=== PATIENT | male | born 1985 | race Caucasian/White ===

== ENCOUNTER 2018-07-29 07:48 | Emergency (ER) | payer OTHER, SELFPAY ==
[2018-07-29 07:46] VITALS: BP 132/74; PULSE 88; RESP 18; TEMP 36.7; O2SAT 100; BMI 30.7
--- NOTE | 2018-07-29 07:53 | DI.RAD.S_ITS ---
PROCEDURE: XR ANKLE RT MIN 3V INDICATIONS: Achilles pain and injury TECHNIQUE: 3 views of the ankle were acquired. COMPARISON: None. FINDINGS: Bones: No fractures or dislocations. Ankle mortise is normally aligned. No suspicious bony lesions. Soft tissues: There is a small tibiotalar joint effusion. There is mild hazy opacification of the Kager fat pad/triangle, which can be seen with Achilles tendon injuries. IMPRESSION: No acute fracture or dislocation of the right ankle. There is a small right ankle joint effusion and mild hazy opacification of the posterior ankle fat, which can be seen with posterior ankle soft tissue injuries (including the Achilles tendon). Consider followup radiographs in 7-10 days if there is continued clinical concern. Dictated by: Faizan Benson M.D. on 07/29/2018 at 8:23 Approved by: Faizan Benson M.D. on 07/29/2018 at 9:13
[2018-07-29] MEDS: KETOROLAC 60 MG/2 ML VIAL IM (08:03)
--- NOTE | 2018-07-29 08:32 | PC.NURSE ---
ambulate with pair of crutches, steady.
--- NOTE | 2018-07-29 08:44 | ED_ITS ---
HPI - Extremity Injury (Lower) General Chief Complaint: Extremity Injury, Lower Stated Complaint: L heel pain post playing racketball Time Seen by Provider: 07/29/18 07:53 Source: patient and EMS Mode of arrival: EMS Limitations: no limitations History of Present Illness HPI Narrative: Presents with all right ankle pain. He was playing his [employer] ball of when he twisted and heard a snap in his ankle. He did not fall. He has extreme pain in his calf. No numbness or tingling. MD complaint: ankle injury Related Data Previous Rx's Medication Instructions Recorded hydrocodone-acetaminophen [[place]] 1 tab PO Q4-6H PRN #10 tab 07/29/18 Allergies Allergy/AdvReac Type Severity Reaction Status Date / Time No Known Drug Allergies Allergy Verified 07/29/18 07:52 Review of Systems Review of Systems GENERAL: Denies chills,fever HEENT: Denies throat pain RESPIRATORY: Denies dyspnea, cough, wheezing CARDIOVASCULAR: Denies chest pain, palpitations GASTROINTESTINAL: Denies nausea, vomiting MUSCULOSKELETAL: See HPI SKIN: No rash, no laceration, no pruritus NEUROLOGIC: Denies weakness, dizziness, headache, numbness 8 point review of systems is negative except for those stated above and HPI Exam Initial Vital Signs Initial Vital Signs: Vital Signs Temperature 98.1 F 07/29/18 07:46 Pulse Rate 88 07/29/18 07:46 Respiratory Rate 18 07/29/18 07:46 Blood Pressure 132/74 07/29/18 07:46 Pulse Oximetry 100 07/29/18 07:46 GENERAL: Well-appearing, well-nourished and in no acute distress. CARDIOVASCULAR: peripheral pulses in tact, cap refill <2 sec RESPIRATORY: No respiratory distress, speaks in full sentences without difficulty EXTREMITIES: Normal range of motion, no clubbing or edema. Neurovascularly intact Right lower extremity: No bony deformity and no swelling improved extremely tender posteriorly. Foot does not move with Bear test NEUROLOGICAL: Cranial nerves II through XII grossly intact. Normal gait and speech. SKIN: Warm, dry, no petechiae, no rashes or lesions. Course Orders Ordered: ED Orders 07/29/18 07:53 XR ankle RT min 3V Stat Discontinued Medications Ketorolac Tromethamine (Toradol) 60 mg IM NOW ONE Stop: 07/29/18 07:56 Last Admin: 07/29/18 08:03 Dose: 60 mg Vital Signs - 8 hr 07/29/18 07:46 07/29/18 09:32 Temperature 98.1 F Pulse Rate 88 90 Respiratory Rate 18 17 Blood Pressure 132/74 128/81 Pulse Oximetry 100 96 MDM - Extremity Injury (Lower) Imaging Data Right ankle XR: Attestation: I personally reviewed and interpreted this imaging study as follows: My impression: No fracture Radiologist's impression: PROCEDURE: XR ANKLE RT MIN 3V INDICATIONS: Achilles pain and injury TECHNIQUE: 3 views of the ankle were acquired. COMPARISON: None. FINDINGS: Bones: No fractures or dislocations. Ankle mortise is normally aligned. No suspicious bony lesions. Soft tissues: There is a small tibiotalar joint effusion. There is mild hazy opacification of the Kager fat pad/triangle, which can be seen with Achilles tendon injuries. IMPRESSION: No acute fracture or dislocation of the right ankle. There is a small right ankle joint effusion and mild hazy opacification of the posterior ankle fat, which can be seen with posterior ankle soft tissue injuries (including the Achilles tendon). Consider followup radiographs in 7-10 days if there is continued clinical concern. Dictated by: Faizan Benson M.D. on 07/29/2018 at 8:23 MDM Narrative Medical decision making narrative: Patient is placed in walking boot, and given crutches. He is very tender On his Achilles. I suspect rupture of the Achilles. Recommended orthopedic follow-up. Discharge Plan Departure Patient Disposition: Home Clinical Impression: Achilles tendon rupture Discharge Date/Time: 07/29/18 09:32 Interventions: ED Discharge Assessment Last Done: 07/29/18 09:32 Instructions: Achilles Tendon Rupture Activity Restrictions/Additional Instructions: *You have been diagnosed with Achilles tendon rupture *What to do: This will likely require surgery. Where walking boot to help prevent footdrop use crutches as needed *Continue to take medications as directed -Minburn 1 tab every 6 hr if needed for severe pain *Follow up with your primary care provider in 2-3 days, follow up with Orthopedics call today to schedule appointment *Return to ER if you should have numbness, tingling, pain or any new, worsening or concerning symptoms Prescriptions: New hydrocodone-acetaminophen [[place]] 5-325 mg tablet 1 tab PO Q4-6H PRN (Reason: pain) Qty: 10 RF: 0 Referrals: [facility] [Provider Group] [facility] [Outside]
[2018-07-29 09:32] VITALS: BP 128/81; PULSE 90; RESP 17; O2SAT 96
== END 2018-07-29 09:32 | disposition home or self-care (01) ==
PROVIDERS: Emergency Provider Emergency Medicine
DX: S86.011A Strain of right Achilles tendon, initial encounter (principal); Y93.69 Activity, other involving other sports and athletics played as a team or group
CPT/HCPCS: 73610; 96372; 99283; J1885

== ENCOUNTER 2020-08-31 17:31 | Emergency (ER) | payer OTHER, SELFPAY ==
[2020-08-31 17:36] VITALS: BP 150/80; PULSE 75; RESP 18; TEMP 37.1; O2SAT 98
--- NOTE | 2020-08-31 17:55 | DI.US.S_ITS ---
PROCEDURE: US SCROTUM INDICATIONS: Testicular pain, rule out portion TECHNIQUE: Real-time scanning was performed of the scrotum and testicles, with image documentation. Color and pulse Doppler interrogation was performed of both testicles. COMPARISON: None. FINDINGS: Normal size and appearance of both testicles. No testicular mass. Normal Doppler flow in both testicles with no evidence of torsion. The left epididymal tail demonstrates mildly increased vascularity the corresponding to the patient's area of tenderness No hydrocele or varicocele. IMPRESSION: No findings of testicular torsion. Suspected left epididymitis. Dictated by: Edliberto Euceda M.D. on 08/31/2020 at 19:00 Approved by: Edilberto Euceda M.D. on 08/31/2020 at 19:01
--- NOTE | 2020-08-31 20:38 | ED.MALEGU ---
HPI - Male Genitourinary General Chief complaint: Urogenital-Male Stated complaint: testicular pain x2 days Time Seen by Provider: 08/31/20 18:09 Source: patient Mode of arrival: Ambulatory Limitations: no limitations History of Present Illness HPI Narrative: 35-year-old male comes to the emergency department with complaint of left testicular pain that started the last 12 hours. Patient has had a couple episodes in the past that last for 6 hours at times but always resolve. Today he noticed swelling, pain and increasing discomfort in a tugging sensation in his groin. He denies any fevers, he denies any abdominal or flank pain. He denies any issues with urination, no dysuria, no penile discharge. He is not have any right testicular pain. Patient denies any other medical issues. He has had hernia repairs 2 on the right the right inguinal 1 on the left that was inguinal and a ventral hernia repair. He states he has also had a vasectomy. He is accompanied by his . Related Data Previous Rx's Medication Instructions Recorded hydrocodone-acetaminophen [[place]] 1 tab PO Q4-6H PRN #10 tab 07/29/18 doxycycline hyclate 100 mg PO BID #28 tab 08/31/20 Allergies Allergy/AdvReac Type Severity Reaction Status Date / Time No Known Drug Allergies Allergy Verified 07/29/18 07:52 Review of Systems Review of Systems ROS Unobtainable: All systems reviewed & are unremarkable except as noted in HPI and below Patient History Substance Use Type: does not use Exam Narrative Exam Narrative: GENERAL: Alert and oriented x three, well-nourished male in mild distress. HEENT: Head normocephalic, atraumatic, EOMI, pupils reactive, face symmetric, moist mucous membranes NECK: Supple, full range of motion CARDIOVASCULAR: Regular rate and rhythm without murmurs, rubs or gallops. RESPIRATORY: Breath sounds equal bilaterally, no wheezes rales or rhonchi. ABDOMEN: Soft, nontender. Normoactive bowel sounds all 4 quadrants. No guarding or rebound, rigidity, no mass : No CVA tenderness. Male: normal external examination, no penile discharge or lesions, left testicle is tender, right testicle is nontender, cremasteric reflex intact, no inguinal hernias noted. No rashes. Skin changes. Vesicles noted. EXTREMITIES: Normal range of motion, no clubbing or edema. Neurovascularly intact NEUROLOGICAL: Cranial nerves II through XII grossly intact. Moving all extremities SKIN: Warm, dry, no petechiae, no rashes or lesions. Initial Vital Signs Initial Vital Signs: Vital Signs Temperature 98.7 F 08/31/20 17:36 Pulse Rate 75 08/31/20 17:36 Respiratory Rate 18 08/31/20 17:36 Blood Pressure 150/80 H 08/31/20 17:36 Pulse Oximetry 98 08/31/20 17:36 Course Orders Ordered: ED Orders 08/31/20 19:04 Chlamydia Gonorrhea PCR -URINE Stat Urine Culture Stat Discontinued Medications Ceftriaxone Sodium (Ceftriaxone 1,000 Mg Vial) 500 mg IM NOW ONE Stop: 08/31/20 20:49 Last Admin: 08/31/20 21:06 Dose: 500 mg Documented by: LOBO Doxycycline Hyclate (Doxycycline Hyclate 100 Mg Tablet) 100 mg PO NOW ONE Stop: 08/31/20 20:49 Last Admin: 08/31/20 21:04 Dose: 100 mg Documented by: LOBO Ketorolac Tromethamine (Ketorolac 60 Mg/2 Ml Vial) 30 mg IM NOW ONE Stop: 08/31/20 20:49 Last Admin: 08/31/20 21:04 Dose: 30 mg Documented by: LOBO Lidocaine HCl (Lidocaine 1% 20 Ml) 2.1 ml INJ NOW ONE Stop: 08/31/20 20:49 Last Admin: 08/31/20 21:05 Dose: 2.1 ml Documented by: LOBO Vital Signs Vital signs: Vital Signs - 8 hr 08/31/20 21:03 Pulse Rate 56 L Respiratory Rate 14 Blood Pressure 132/70 Pulse Oximetry 96 MDM - Male Genitourinary Lab Data Attestation: I reviewed the patient's lab results. Labs: Lab Results 08/31/20 Range/Units 19:04 Ur Chlamydia DNA (PCR) Not detected N gonorrhoeae DNA (PCR) Not detected Urine Dip Bedside Urine Glucose Negative Bedside Urine Bilirubin - Negative Bedside Urine Ketone - Negative Urine Specific [place] 1.025 Bedside Urine Occult Blood - Negative Bedside Urine pH 6 Bedside Urine Protein - Negative Bedside Urine Urobilinogen - Negative Bedside Urine Nitrite - Negative Bedside Urine Leukocytes - Negative Esterase Imaging Data Testicular ultrasound: Radiologist's Impression: [address] [id number] ReportSigned Patient: Madhu Hansen R#: [id number]: 1985Acct:[id number]/Sex: 35 / MDate of Service: 08/31/20Loc: EDAccession Number: [id number] Procedure: US scrotum Ordering Provider: Rodolfo Jules D.O. PROCEDURE: US SCROTUM INDICATIONS: Testicular pain, rule out portion TECHNIQUE: Real-time scanning was performed of the scrotum and testicles, with image documentation. Color and pulse Doppler interrogation was performed of both testicles. COMPARISON: None. FINDINGS: Normal size and appearance of both testicles. No testicular mass. Normal Doppler flow in both testicles with no evidence of torsion. The left epididymal tail demonstrates mildly increased vascularity the corresponding to the patient's area of tenderness No hydrocele or varicocele. IMPRESSION: No findings of testicular torsion. Suspected left epididymitis. Dictated by: Edilberto Euceda M.D. on 08/31/2020 at 19:00 Approved by: Edilberto Euceda M.D. on 08/31/2020 at 19:01 [facility] Narrative Medical decision making narrative: 35-year-old male with left-sided testicular pain with ultrasound consistent with epididymitis. Negative. Urine GC is negative. Patient was treated with Rocephin and doxycycline. Return precautions were discussed. Patient is following up on Thursday with primary care for referral to Urology. Discharge Plan Departure Patient Disposition: Home Clinical Impression: Epididymitis Instructions: DI for Epididymitis Activity Restrictions/Additional Instructions: Follow up with your physician this week for recheck. You may take ibuprofen up to 800 mg every 8 hours as needed for pain. You may take Tylenol up to a 1000 mg every 8 hours as needed for pain. You may use ice to the affected area as needed. Your urine tests are still pending. If you are on the appropriate antibiotics you will not be contacted. But you can call to follow-up your culture and testing. Take antibiotics until completely gone. Return to the ER for fevers greater 100.4 F, rapidly worsening pain, swelling, inability urinate, new abdominal or flank, lightheadedness or passing out, persistent vomiting or other new or concerning symptoms. Prescriptions: New doxycycline hyclate 100 mg tablet 100 mg PO BID Qty: 28 RF: 0 No Action hydrocodone-acetaminophen [[place]] 5-325 mg tablet 1 tab PO Q4-6H PRN (Reason: pain) Qty: 10 RF: 0 Referrals: Tim Benavides MD [Physician] -
[2020-08-31 20:57] LABS: Urine N gonorrhoeae NOT DETECTED
[2020-08-31 21:03] VITALS: BP 132/70; PULSE 56; RESP 14; O2SAT 96
[2020-08-31] MEDS: KETOROLAC 60 MG/2 ML VIAL 30 MG IM (21:04)
[2020-08-31] MEDS: DOXYCYCLINE HYCLATE 100 MG TABLET PO (21:04)
[2020-08-31] MEDS: LIDOCAINE 1% 20 ML 2.1 ML INJ (21:05)
[2020-08-31] MEDS: cefTRIAXone 1,000 MG VIAL 500 MG IM (21:06)
[2020-08-31 21:13] LABS: Urine Chlamydia NOT DETECTED
== END 2020-08-31 21:20 | disposition home or self-care (01) ==
PROVIDERS: Emergency Provider Emergency Medicine
DX: N45.1 Epididymitis (principal)
CPT/HCPCS: 76870; 81003; 87086; 87491; 87591; 96372; 99283; J0696; J1885

== ENCOUNTER → 2021-08-23 13:49 | Outpatient (CLI) | payer OTHER, SELFPAY ==
[2021-08-23 14:39] LABS: COVID19 -Nasal RAPID Negative (Negative)
== END ==
PROVIDERS: Visit Provider Surgery
DX: Z01.812 Encounter for preprocedural laboratory examination (principal); Z20.822 Contact with and (suspected) exposure to COVID-19
CPT/HCPCS: 87635; C9803

== ENCOUNTER 2021-08-26 06:29 | Day surgery (SDC) | payer OTHER, SELFPAY ==
[2021-08-22 09:30] VITALS: BMI 31.4
[2021-08-26 06:45] VITALS: BP 137/90; PULSE 78; RESP 16; TEMP 36.8; O2SAT 100; BMI 31.1
--- NOTE | 2021-08-26 07:33 | PM.PREOP ---
Pre-operative Note COVID-19 Criteria for continued procedure: Continuing or worsening of significant or severe pain Interval Note History & Physical reviewed/Exam performed by Physician: Yes Changes to H&P: No
[2021-08-26] MEDS: CEFAZOLIN 2 GM/20 ML SYRINGE IV (08:01)
--- NOTE | 2021-08-26 08:06 | SUR.OPER ---
Prone on padded OR bed, head in foam head support, gel chest rolls, gel pad under knees, pillow under lower legs, toes free of pressure, arms secured on padded arm boards at <90 degrees abduction. Safety belt at thigh.
[2021-08-26] MEDS: BUPIVACAINE 0.25% (PF) VIAL 30 ML INJ (08:09)
--- NOTE | 2021-08-26 09:16 | PM.OP.1 ---
Operative Date/Time/Diagnoses Date of procedure: 08/26/21 Time of procedure: 09:16 Pre-op diagnosis: Recurrent right inguinal hernia Post-op diagnosis: same Procedure & Clinicians Procedure: Open repair of recurrent right inguinal hernia Same procedure as scheduled: Yes Indications: 36-year-old man previous laparoscopic right inguinal hernia repair subsequent open right inguinal hernia repair for recurrence and now with a 2nd recurrence. Surgeon: Micha Gilliland Click Yes if Unassisted: Yes Anesthesia Type: General Operative Notes Findings: Small indirect hernia and direct floor defect Specimen(s): none sent Estimated Blood Loss (mL): 20 Procedure in detail: Patient was brought to the operating room placed supine on the table. General anesthesia was induced he was intubated with an LMA. He was prepped and draped sterile fashion. Time-out performed. He received 2 g of Ancef prior to skin incision. The right previous inguinal incision was opened. The subcutaneous tissue was divided. The external oblique aponeurosis was exposed and then opened along the direction of its fibers. There was a large amount of scar tissue within the inguinal canal. The cord was then carefully freed from the canal and the previous mesh. The cord been previously fairly well skeletonized there was a laxity to the lateral aspect of the internal ring and a plug of mesh was placed into the ring and secured to the adjacent fascia to recreate the ring. The floor the canal had a direct defect. The floor was attenuated and scarred. The floor of the canal was then completely opened and the preperitoneal fat was observed. A 2nd plug of mesh was then placed into the floor and secured to the internal oblique aporneurosis and the shelving edge. A sheet of mesh was then secured over the floor for reinforcement, secured at the pubic tubercle along the inguinal ligament and the internal oblique aporneurosis with interrupted eithibond suture. The canal was then in a running fashion Vicryl suture. The subcutaneous tissue was reapproximated Vicryl skin closed with Monocryl followed by Dermabond. Complications: none Post-operative Condition: stable Disposition: same day surgery
[2021-08-26 09:17] VITALS: BP 108/62; PULSE 70; RESP 12; TEMP 36.6; O2SAT 88
[2021-08-26 09:24] VITALS: BP 126/77; PULSE 70; RESP 15; O2SAT 99
[2021-08-26 09:31] VITALS: BP 143/88; PULSE 81; RESP 15; O2SAT 99
[2021-08-26] MEDS: ACETAMINOPHEN 325 MG TABLET 650 MG PO (09:35)
[2021-08-26] MEDS: OXYCODONE IR 5 MG TABLET PO (09:35)
--- NOTE | 2021-08-26 09:37 | SUR.PHASEII ---
report given to Geovanna LYNN. Pt tolerating Ice chips, water, apple sauce with no c/o nausea noted. Groin site intact, no drainage noted.
[2021-08-26 09:40] VITALS: BP 144/76; PULSE 72; RESP 18; TEMP 36.9; O2SAT 99
== END 2021-08-26 09:50 | disposition home or self-care (01) ==
PROVIDERS: Referring Provider Surgery; Visit Provider Surgery
PROC: (CPT 49520; principal; 2021-08-26 07:45)
DX: K40.91 Unilateral inguinal hernia, without obstruction or gangrene, recurrent (principal)
CPT/HCPCS: 49520; 82962; J0690; J1100; J1885; J2405; J2704; J3010

== ENCOUNTER → 2024-06-13 18:26 | Outpatient (CLI) | payer OTHER, SELFPAY ==
--- NOTE | 2024-06-13 | DI.MRI.S_ITS ---
PROCEDURE: MR SHOULDER LT WO CON INDICATIONS: pain in elbow/shoulder TECHNIQUE: Noncontrast oblique coronal T2 fast spin echo with fat saturation, oblique sagittal T1 spin echo and T2 fast spin echo with fat saturation, axial T1 spin echo and T2 fast spin echo with fat saturation through the shoulder. COMPARISON: None. FINDINGS: Image quality: Excellent. Rotator cuff: Mild tendinosis of the supraspinatus, without tear. The infraspinatus is unremarkable. The teres minor is unremarkable. Mild tendinosis of the subscapularis, without tear. No muscle edema or fatty atrophy. Bones and bursae: Moderate degenerative changes of the acromioclavicular joint. Type 2 acromion. No os acromiale. Trace subacromial/subdeltoid bursitis. Mild subchondral cystic changes at the lesser tuberosity, reactive. No acute fracture. No focal chondral defect of the glenohumeral articulation. Capsule and soft tissues: The labrum is intact. The extra-articular, and the intra-articular biceps tendon are unremarkable. Small glenohumeral effusion. No intra-articular body. IMPRESSION: 1. Moderate degenerative changes of the acromioclavicular joint. 2. Mild tendinosis of the supraspinatus and subscapularis, without tear. Dictated by: Cally Quigley M.D. on 06/14/2024 at 9:58 Approved by: Cally Quigley M.D. on 06/14/2024 at 10:05
--- NOTE | 2024-06-13 | DI.MRI.S_ITS ---
PROCEDURE: MR ELBOW RT WO CON INDICATIONS: pain in right elbow/ left shoulder TECHNIQUE: Noncontrast coronal proton density fast spin echo and T2 fast spin echo with fat saturation, axial and sagittal T1 spin echo and T2 fast spin echo with fat saturation through the elbow. COMPARISON: None. FINDINGS: Image quality: Excellent. Lateral structures: The lateral ulnar collateral ligament and radial collateral ligament both appear intact. Mild tendinosis of the common extensor tendon origin, without tear. Medial structures: The ulnar collateral ligament appears intact. The overlying common flexor tendon appears normal. Edema of the ulnar nerve, raising concern for ulnar neuritis. Anterior structures: The biceps and brachialis tendons both appear intact as they insert onto the proximal radius and ulna, respectively. No bicipitoradial bursal fluid. The median and radial neurovascular bundles appear normal; no focal muscle atrophy to suggest nerve impingement. Posterior structures: The conjoint triceps tendon from the long and lateral heads appears intact. The medial head of the triceps tendon also appears normal, with direct muscle insertion onto the olecranon. No olecranon bursal fluid. Bone and cartilage: No bone marrow contusions or fractures. No osteochondral injuries. IMPRESSION: 1. Mild tendinosis of the common extensor tendon origin, without tear. 2. Findings concerning for ulnar neuritis. Dictated by: Cally Quigley M.D. on 06/14/2024 at 15:33 Approved by: Cally Quigley M.D. on 06/14/2024 at 15:40
== END ==
LOC: MRI 18:27
DX: M25.512 Pain in left shoulder (principal); M25.521 Pain in right elbow
CPT/HCPCS: 73221

== ENCOUNTER → 2024-07-29 08:31 | Outpatient (CLI) | payer OTHER, SELFPAY ==
--- NOTE | 2024-07-29 08:32 | DI.MRI.S_ITS ---
PROCEDURE: MR WRIST RT WO CON INDICATIONS: PERSISTENT RT WRIST PAIN/LT SHOULDER PAIN TECHNIQUE: Noncontrast coronal proton density fast spin echo and T2 fast spin echo with fat saturation; coronal 3-D gradient echo, axial T1 spin echo and T2 fast spin echo with fat saturation, sagittal T1 spin echo through the wrist. COMPARISON: None. FINDINGS: Image quality: Excellent. Bones: The bone marrow signal is normal. There is no evidence of fracture or carpal bone osteonecrosis. There is a type 1 lunate. Joints: There is no significant osteoarthritis. There is no significant fluid within the distal radioulnar joint, radiocarpal joint, or midcarpal space. Intrinsic Ligaments: The scapholunate and lunotriquetral intervals are normal. The intrinsic scapholunate and lunotriquetral ligaments are normal. Extrinsic Ligaments: The extrinsic ligaments are normal. Triangular Fibrocartilage Complex: The triangular fibrocartilage disc proper, distal dorsal and volar radioulnar ligaments, ulnar collateral ligament/meniscal homologue, ulnotriquetral, and ulnolunate ligaments are normal. Tendons: There is minimal intermediate signal within the extensor carpi ulnaris tendon at the fibro-osseous tunnel (03/20) of the distal ulna. The flexor and extensor tendons are otherwise normal. Nerves: The median and ulnar nerves appear normal in size and signal. Other: No other acute abnormality. IMPRESSION: Minimal extensor carpi ulnaris tendinosis. Otherwise, no acute MR abnormality of the right wrist. Dictated by: Nithin Dobson M.D. on 07/29/2024 at 15:26 Approved by: Nithin Dobson M.D. on 07/29/2024 at 15:33
--- NOTE | 2024-07-29 08:33 | DI.RAD.S_ITS ---
PROCEDURE: FL JOINT INJECTION LARGE LT INDICATIONS: PERSISTENT RT WRIST PAIN/LT SHOULDER PAIN COMPARISON: None. TECHNIQUE: The indications, alternatives, benefits, risks, and complications of the procedure were explained to the patient. Written informed consent was obtained and placed in the chart. The patient was placed in an appropriate position on the fluoroscopy table, and a site was chosen for percutaneous access under fluoroscopic guidance. The site was prepped and draped in a sterile fashion. Local anesthetic was administered using a 1% lidocaine solution. A hypodermic or spinal needle was then used to access the symptomatic joint. Intra-articular location of the needle tip was confirmed by injecting a small amount of contrast, followed by steroid administration. The needle was then withdrawn, and a bandage applied to the puncture site. FINDINGS: Joint injected: Left shoulder Medications injected: For mL of 40 mg/mL Kenalog and 0.5% Ropivacaine mixture. Patient's pain before injection: 3 out of 10. Patient's pain after injection: 3 out of 10. Complications: None. IMPRESSION: Successful fluoroscopically guided administration of steroid and anaesthetic solution into the left shoulder joint. Dictated by: West Brown M.D. on 07/29/2024 at 16:06 Approved by: West Brown M.D. on 07/29/2024 at 16:09
[2024-07-29] MEDS: LIDOCAINE 1% 20 ML INJ (12:57)
[2024-07-29] MEDS: TRIAMCINOLONE 40 MG/ML VIAL INTRA-ARTI (12:57)
[2024-07-29] MEDS: ROPIVACAINE 0.5% PF 5 MG/ML 20ML VIAL 20 ML INJ (12:57)
== END ==
DX: M25.531 Pain in right wrist (principal); M25.512 Pain in left shoulder; M67.833 Other specified disorders of tendon, right wrist
CPT/HCPCS: 20610; 73221; 77002; Q9967

== ENCOUNTER → 2024-08-22 15:39 | Outpatient (CLI) | payer OTHER, SELFPAY ==
--- NOTE | 2024-08-22 15:40 | DI.US.S_ITS ---
PROCEDURE: US ABDOMEN LIMITED INDICATIONS: POSSIBLE INGUINAL HERNIA TECHNIQUE: Real-time focused scanning was performed of the abdomen, with image documentation. COMPARISON: None. FINDINGS: There is fat within both inguinal canals. Quantity does not change with Valsalva maneuver and is non reducible with transducer compression. IMPRESSION: Probable non reducible bilateral fat containing inguinal hernias versus lipomatous hypertrophy of the spermatic cord. Consider CT or physical exam to assess for inguinal ring enlargement. Dictated by: Unique Peterson M.D. on 08/23/2024 at 11:06 Approved by: Unique Peterson M.D. on 08/23/2024 at 11:09
== END ==
DX: K40.90 Unilateral inguinal hernia, without obstruction or gangrene, not specified as recurrent (principal)
CPT/HCPCS: 76705

== ENCOUNTER 2025-05-24 06:02 | Day surgery (SDC) | payer OTHER, SELFPAY ==
[2025-05-05 12:53] VITALS: BMI 31.8
[2025-05-24 06:49] VITALS: BP 136/85; PULSE 73; RESP 16; TEMP 36.8; O2SAT 98
[2025-05-24] MEDS: LACTATED RINGERS 1,000 ML 42 ML IV (07:11)
[2025-05-24] MEDS: ACETAMINOPHEN IV 1,000 MG/100 ML VIAL 400 MG IV (07:12)
--- NOTE | 2025-05-24 07:34 | P.HP_ITS ---
History of Present Illness History of Present Illness Date Patient Seen: 05/24/25 Time Patient Seen: 07:34 Chief complaint: Bilateral Lap Inguinal Hernia Repair Robot Assist. Narrative: Madhu is a 40 year old man with a multiply recurrent right inguinal hernia and a de Carmelo left inguinal hernia. See the prior office note for details. [facility] Medical History (Updated 05/05/25 @ 12:45 by Mary Jo Tilley RN) MICHAEL (obstructive sleep apnea) HLD (hyperlipidemia) DVT (deep venous thrombosis) Chronic low back pain Sleep apnea Hernia Surgical History (Updated 05/05/25 @ 12:52 by Mary Jo Tilley RN) Hx of right inguinal hernia repair (08/26/21) Hx of hernia repair (02/2015) Hx of LASIK (09/2017) Hx of vasectomy (06/2016) History of Achilles tendon repair (07/2018) H/O hernia repair (01/2011) Family History Father Hypertension Diabetes mellitus Heart disease Grandmother Hypertension Heart disease Diabetes mellitus Breast cancer Family/Other Stomach cancer Colon cancer Mother Thyroid cancer Social History marital status: household members: spouse and children occupational status: employed Smoking Status: Never smoker alcohol intake: current Meds Home Medications and Allergies Home Medications ?Medication ?Instructions ?Recorded ?Confirmed ?Type clonidine HCl 0.3 mg tablet 0.3 mg PO BEDTIME 05/05/25 05/24/25 History Allergies Allergy/AdvReac Type Severity Reaction Status Date / Time No Known Drug Allergies Allergy Verified 05/24/25 06:40 Exam Vital Signs (past 8 hours): - 05/24/25 06:49 Temperature 98.3 F Pulse Rate 73 Respiratory Rate 16 Blood Pressure 136/85 Pulse Oximetry 98 Oxygen Delivery Method Room Air Oxygen Delivery Method Room Air Const General: healthy appearing Assessment & Plan Assessment and plan (1) Recurrent bilateral inguinal hernia (BIH): Qualifiers: Obstruction and gangrene presence: without obstruction or gangrene Qualified Code(s): K40.21 - Bilateral inguinal hernia, without obstruction or gangrene, recurrent Status: Acute Plan Robotic bilateral inguinal hernia repair with mesh Time-Based Coding :: [TOTAL MINUTES] spent with patient and on the chart (including review of chart, obtaining history, exam, reviewing outside data, placing orders, documenting exam and treatment plan, and counseling patient) on [DATE]. [employer] Document charge(s): No
--- NOTE | 2025-05-24 08:17 | SUR.OPER ---
Supine on padded OR bed, head on pillow,pink pad, arms padded and tucked at sides, legs uncrossed, safety belt at thigh, tape over blanket over lower legs .
--- NOTE | 2025-05-24 11:00 | P.OP_ITS ---
Operative Date/Time/Diagnoses Date of procedure: 05/24/25 Time of procedure: 11:01 Pre-op diagnosis: Recurrent bilateral inguinal hernias Post-op diagnosis: same Procedure & Clinicians Procedure: Robotic recurrent bilateral inguinal hernia repair with mesh Same procedure(s) as scheduled: Yes Surgeon: Devonte Gauthier Assisted?: No Anesthesia Type: General Operative Notes Findings: Right groin: No evidence of a prior laparoscopic repair, evidence of plug in the direct space with a small direct recurrent defect medial to the mesh, small fat containing femoral hernia Left groin: There was laparoscopic mesh over the indirect and direct space with metal bryon and a fragment of mesh attached to the pubis at the midline, adipose tissue in the indirect space with a rather large indirect defect as well as a fat containing direct defect Applied: none Estimated Blood Loss (mL): 10 Procedure in detail: The patient was given preoperative antibiotics. The patient was brought to the operating room, placed on the table in the supine position with the arms tucked and general anesthesia was induced. The abdomen was prepped and draped in the usual fashion. A time-out was performed. A 1 cm transverse incision was created superior to the umbilicus and dissection was carried down to the fascia. The fascia was scored transversely with cautery. The fascia was grasped with a Cesar clamp to elevate the abdominal wall. A Peon clamp was used to mallory the peritoneum. The 12 mm robotic port was placed and the abdomen was insufflated to 15 mmHg. The camera was inserted, there was no evidence of any injury from the entry. Next 8 mm ports were placed under direct vision in the mid left and mid right abdomen. The patient was positioned in Trendelenburg. The robot was docked. There was no evidence of a prior right posterior repair. There was rectangular piece of mesh covering the indirect and direct defect on the left side with meta l bryon along its periphery. The right side was performed first because it was the more symptomatic side. The peritoneum was dissected off the right cord structures and the Lopez's ligament was exposed. There was what appeared to be plug coming through the direct space. The peritoneum was dissected off the plug. The plug seemed to be rather firmly adhered to the direct defect and was possibly sutured to patch of mesh that would have been anterior to the abdominal wall. Dissection was carried medially to the midline of the pubis. An extra-large right Bard mesh was brought in and placed over the defect with the medial edge overlapping the pubic symphysis. The mesh was sutured to Lopez's ligament with a single 3-0 Vicryl stitch. Next the left side was dissected. The peritoneum was dissected down to the previously placed mesh. A dissection plane was chosen anterior to the mesh keeping the mesh with the peritoneum. The mesh was eventually dissected off of the internal ring. There was a cord lipoma that was dissected out of the indirect space. There also appeared to be a fat containing direct defect. The fatty tissue was dissected out of the defect. Dissection was carried medially to the midline and the dissection was connected to the right-sided dissection. There was some old mesh firmly adherent in the midline superior to the pubis suggesting that the left-sided mesh had fractured as it was not continuous with the mesh that was noted over the indirect space. An extra-large left Bard mesh was brought in and placed over the defect with the medial edge overlapping the pubic symphysis. The mesh was sutured to Lopez's ligament with a single 3-0 Vicryl stitch and an additional stitch was placed to the left mesh to the right mesh in the midline. Finally the peritoneal flaps were closed with a running 3-0 barbed suture. We took one last look around the abdomen and saw no other abnormalities. The suture was removed and accounted for. The left cord fat was removed. The robot was undocked. The 8 mm ports were removed under direct vision. The abdomen was desufflated. The 12 mm port was removed. Additional local was injected into the fascia and the fascial incision was closed with 2 interrupted 0 Vicryl sutures. The skin incisions were closed with 4 Monocryl, Steri-Strips and Band- Aids. Complications: none Post-operative Condition: stable Disposition: PACU
[2025-05-24 11:02] VITALS: BP 141/67; PULSE 101; RESP 20; TEMP 37.2; O2SAT 98
[2025-05-24 11:09] VITALS: BP 153/85; PULSE 98; RESP 16; O2SAT 99
[2025-05-24 11:14] VITALS: BP 152/83; PULSE 93; RESP 13; O2SAT 96
[2025-05-24 11:20] VITALS: BP 156/81; PULSE 87; RESP 10; TEMP 36.7; O2SAT 97
[2025-05-24 11:56] VITALS: BP 142/81; PULSE 89; RESP 16; TEMP 36.1; O2SAT 96
== END 2025-05-24 12:11 | disposition home or self-care (01) ==
PROVIDERS: Visit Provider Surgery
PROC: 0YQ54ZZ Repair Right Inguinal Region, Percutaneous Endoscopic Approach (ICD-10-PCS; CPT 49651; principal; 2025-05-24 07:45)
DX: K40.21 Bilateral inguinal hernia, without obstruction or gangrene, recurrent (principal); K41.90 Unilateral femoral hernia, without obstruction or gangrene, not specified as recurrent; D17.6 Benign lipomatous neoplasm of spermatic cord
CPT/HCPCS: 49651; S2900; C1781; J0131; J0689; J1100; J1171; J1885; J2250; J2405; J2704; J3010; J3490; J7120